=== PATIENT | female | born 1950 | race Caucasian/White ===

== ENCOUNTER → 2016-10-19 | Outpatient (CLI) | payer MEDICARE | END | disposition home or self-care (01) | LOC: CFH 13:35 | PROVIDERS: ATTEND Genetic Counselor, MS | DX: M47.897 Other spondylosis, lumbosacral region (principal); M51.26 Other intervertebral disc displacement, lumbar region | CPT/HCPCS: 72148 ==

== ENCOUNTER → 2016-12-09 | Outpatient (CLI) | payer MEDICARE | END | disposition home or self-care (01) | LOC: RAD 13:27 → EDSTATUS 13:45 | PROVIDERS: ATTEND Genetic Counselor, MS | DX: M94.261 Chondromalacia, right knee (principal); M25.461 Effusion, right knee; M71.21 Synovial cyst of popliteal space [Baker], right knee; M21.961 Unspecified acquired deformity of right lower leg; S83.281A Other tear of lateral meniscus, current injury, right knee, initial encounter; S83.241A Other tear of medial meniscus, current injury, right knee, initial encounter; X58.XXXA Exposure to other specified factors, initial encounter; Z98.890 Other specified postprocedural states; Y93.89 Activity, other specified; Y92.89 Other specified places as the place of occurrence of the external cause; Y99.8 Other external cause status ==

== ENCOUNTER → 2017-01-12 | Outpatient (CLI) | payer MEDICARE ==
[~2017-01-12] MED LIST: REGADENOSON 0.4 MG/5 ML SYRINGE ONE
== END | disposition home or self-care (01) ==
LOC: CFH 12:21
PROVIDERS: ATTEND Internal Medicine Cardiovascular Disease
DX: R94.31 Abnormal electrocardiogram [ECG] [EKG] (principal); I10 Essential (primary) hypertension; E78.5 Hyperlipidemia, unspecified; Z82.49 Family history of ischemic heart disease and other diseases of the circulatory system
CPT/HCPCS: 78452; 93017; 93306; A9502; J2785

== ENCOUNTER 2018-07-27 11:23 | Emergency (ER) | payer MEDICARE ==
[~2018-07-27] VITALS: Ht 167.6 cm; Wt 100.8 kg
[~2018-07-27 11:23] MED LIST changes: +BACL-19 PO; +CHOL200024 PO; +CYAN25009 PO; +CYCL-259 PO; +DULO30CA2 PO; +HYDR-3307 PO; +MELA3TAB2 PO; +MELO7.5T31 PO; +METH4TAB2 PO; +MULT-154 PO; +OMEG100023 PO; -REGADENOSON 0.4 MG/5 ML SYRINGE ONE; +TRAM50TA2 PO; +[UNRECOGNIZED DRUG - OTHER] PO
--- NOTE | 2018-07-27 11:30 | NUR ---
PT AMBULATORY WITH STEADY GAIT TO ROOM.
--- NOTE | 2018-07-27 11:37 | NUR ---
ASSUMING PT CARE AT THIS TIME. 68 Y/O FEMALE PRESNETS TO ED WITH C/O DIARRHEA. "I HAD SOME SURGERY Jun. I HAD A FUSION IN MY C-SPINE. I WAS ON ABX FOR SURGERY, JUST NOT AFTER. THE LAST FEW DAYS I'VE GOTTEN DIARRHEA. NO NAUSEA OR VOMITING. LAST NIGHT I JUST FELT SO BAD, WEAK AND FATIGUE AND HEAVY. I DON'T HAVE ANY PAIN IN MY BELLY." PT PLACED ON CONT PULSE OX,NIBP.
--- NOTE | 2018-07-27 11:52 | NUR ---
STOOL SAMPLE WALKED TO LAB.
[2018-07-27] MEDS ORDERED: SODIUM CHLORIDE 0.9% 1,000ML IVBOLUS ONE (12:00)
[2018-07-27] MEDS ORDERED: SODIUM CHLORIDE FLUSH 10ML SYR IVF ONE (12:00)
[2018-07-27 12:07] LABS: BASOPHILS # (AUTO) 0.02 x10^3/uL (0-0.1); BASOPHILS % (AUTO) 0 % (0-1); EOSINOPHILS # (AUTO) 0.17 x10^3/uL (0-0.4); EOSINOPHILS % (AUTO) 1 % (1-7); LYMPHOCYTES # (AUTO) 1.59 x10^3/uL (1-3.4); LYMPHOCYTES % (AUTO) 13 % (22-44); MD NO; MEAN CORPUSCULAR HEMOGLOBIN 32.9 pg (27.0-34.8); MEAN CORPUSCULAR VOLUME 96.5 fL (80-100); MEAN PLATELET VOLUME 7.1 fL (7.4-10.4); MONOCYTES # (AUTO) 0.55 x10^3/uL (0.2-0.8); MONOCYTES % (AUTO) 4 % (2-9); NEUTROPHILS # (AUTO) 10.39 x10^3/uL (1.8-6.8); NEUTROPHILS % (AUTO) 82 % (42-75); PLATELET COUNT 363 x10^3/uL (130-400); RED BLOOD COUNT 5.11 x10^6/uL (3.82-5.3); RED CELL DISTRIBUTION WIDTH 12.9 % (9.6-15.2)
[2018-07-27 12:16] LABS: ALBUMIN 3.7 g/dL (3.4-5.0); ANION GAP 9 mmol/L (5-15); CALCIUM 9.3 mg/dL (8.5-10.1); CHLORIDE 111 mmol/L (98-107)
[2018-07-27 12:21] LABS: ALANINE AMINOTRANSFERASE 48 U/L (12-78); ALKALINE PHOSPHATASE 86 U/L (45-117); BILIRUBIN,TOTAL 0.9 mg/dL (0.2-1.0); CREATININE 1.17 mg/dL (0.55-1.02); TOTAL PROTEIN 7.1 g/dL (6.4-8.2)
--- NOTE | 2018-07-27 13:00 | NUR ---
TASK RN: PT RESTING ON GURNEY. NADN. JUNG.
[2018-07-27 13:05] LABS: CLOSTRIDIUM DIFFICILE ANTIGEN NEGATIVE; CLOSTRIDIUM DIFFICILE TOXIN NEGATIVE (Negative)
--- NOTE | 2018-07-27 13:27 | NUR ---
PIV ESTABLISHED. PT TOLERATED WITH NO COMPLICATIONS. IVF INFUSING. NO NEEDS REQUESTED AT THIS TIME.
[2018-07-27 13:28] VITALS: BP 149/80
--- NOTE | 2018-07-27 14:34 | NUR ---
Patient/Caregiver given discharge instructions and they have confirmed that they understand the instructions. Patient ambulatory with steady gait. PT LEFT WITH ALL PERSONAL BELONGINGS.
== END 2018-07-27 14:36 | disposition home or self-care (01) ==
LOC: ED 12:36
DX: R19.7 Diarrhea, unspecified (principal)
CPT/HCPCS: 36415; 80053; 83690; 85025; 87046; 87324; 87427; 89055; 96360; 99283; J7030

== ENCOUNTER → 2019-05-30 | Outpatient (CLI) | payer MEDICARE ==
[~2019-05-30] MED LIST changes: -HYDR-3307 PO; +HYDR-36 PO; -MELA3TAB2 PO; +MELA3TAB56 PO
== END | disposition home or self-care (01) ==
LOC: CFH 14:21
DX: Z12.31 Encounter for screening mammogram for malignant neoplasm of breast (principal); N64.89 Other specified disorders of breast; M85.80 Other specified disorders of bone density and structure, unspecified site; N95.9 Unspecified menopausal and perimenopausal disorder; Z82.49 Family history of ischemic heart disease and other diseases of the circulatory system
CPT/HCPCS: 77063; 77067; 77080

== ENCOUNTER → 2019-07-18 | Outpatient (CLI) | payer MEDICARE | END | disposition home or self-care (01) | LOC: RAD 12:55 | PROVIDERS: ATTEND Otolaryngology | DX: K22.8 Other specified diseases of esophagus (principal); R13.19 Other dysphagia | CPT/HCPCS: 74220 ==